=== PATIENT | female | born 1975 | race Hispanic/Latino ===

== ENCOUNTER 2019-07-16 16:24 | Emergency (ER) | payer SELFPAY ==
--- OUTSIDE RECORDS SUMMARY | 2019-07-16 16:26 | XMS REPORT | Continuity of Care Document ---
:1975 Author Organization [facility] Address [address] [place] [address] Allergies, Adverse Reactions, Alerts No known allergies. Medications No known medications. Problems Active Problems Medical Problem Onset Date Status Influenza due to influenza A virus Active Inactive/Resolved Problems Medical Problem Onset Date Status Headache Resolved Hypertension Resolved Procedures No procedure information available. Relevant Diagnostic Tests and/or Laboratory Data Laboratory Results Test Date/Time Result Interpretation Reference Result Comment Performing Range Site Random April 123 74-106 [facility], [address] [place] [address] Glucose 2019 1:11pm [facility] [address] Blood Urea April 10 6-20 [facility], [address] [place] [address] Nitrogen 2019 1:11pm [facility] [address] Serum April 282 280-300 [facility], [address] [place] [address] Osmolality 2019 1:11pm [facility] [address] Creatinine April 0.5 0.50-0.90 [facility], [address] [place] [address] 2019 1:11pm [facility] [address] Glomerular April > 60.00 GFR RESULTS ARE [address] Filtration 2019 REPORTED IN Rate Calc 1:11pm mL/min/1.73m2.No [facility] [address] rmal GFR: >60mL/minModerat mitzi decreased GFR: 30-59 mL/minSeverely decreased GFR: 15-29 mL/minKidney Failure (or Dialysis): <15 mL/minThe calculated eGFR is not valid for patients younger than 18 years or older than 75 years. BUN/Creatini April 20.0 12-20 [facility], [address] Ratio 2019 1:11pm [facility] [address] Sodium Level April 141 135-145 [facility], [address] [place] [address] 2019 1:11pm [facility] [address] Potassium April 3.6 3.5-5.2 [facility], [address] [place] [address] Level 2019 1:11pm [facility] [address] Chloride April 104 98-108 [facility], [address] Level 2019 1:11pm [place] [address] Carbon April 25 21-32 [facility], [address] Dioxide 2019 Level 1:11pm [place] [address] Anion Gap Yarely 15.6 12-[address] 2019 1:11pm [place] [address] Calcium Yarely 9.7 8.6-10.0 [place] [address] Level 2019 1:11pm [facility] [address] Troponin I April < 0.30 0.0-0.[address] 2019 clinical studies 1:11pm have shown [facility] [address] elevations of cTnI in patients with myocardial injury, as seen in unstable angina pectoris, cardiac contusions, and heart transplants. Elevations have also been seen in patients with rhabdomyolysis and polymyositis.Arleen vated troponin levels point to myocardial injury, but are not necessarily indicative of an ischemic mechanism. The term FL should be used when there is evidence of cardiac damage, as detected by marker proteins in a clinical setting consistent with myocardial ischemia. If the clinical circumstance suggests that an ischemic mechanism is unlikely, other causes of cardiac injury should be considered.For diagnostic purposes, the results should always be assessed in conjunction with the patient's medical history, clinical examination and other findings. Creatine April 2.0 0.0-3.6 DIAGNOSTIC [place] [address] Kinase MB 2019 CITERIA: 1:11pm CKMB [facility] [address] CKMB RELATIVE INDEX -SUGGESTIVE OF NON-AMI < or=5 N/AGRAY ZONE (INCONCLUSIVE) > 5 < or=4SUGGESTIVE OF AMI >5 > 4 Health Concerns No known health concerns documented Advance Directives Advance Directive Response Recorded Date/Time Advance Directives No January 29, 2014 3:43pm Directive to Physicians/Living Will No January 29, 2014 3:43pm Health Care Proxy No January 29, 2014 3:43pm Organ Donor No January 29, 2014 3:43pm Medical Power of Shop And Alteration Tailor No January 29, 2014 3:43pm Chief Complaint and Reason for Visit Chief Complaint Headache Reason for Visit [id number] Encounters Encounter Location(s) Arrival/Admit Date Discharge/Depart Date Provider(s) Departed El May 14, 2019 May 14, 2019 BIJAN Emergency Room [facility] 11:42am 2:53pm JOSH Parisi MD Ctr Assessments No Assessments Information Available Functional Status No Functional Status information available Goals No Goals Information Available Immunizations No Immunization Information Available Mental Status No Mental Status Information Available Medical Equipment No Medical Equipment Information available Insurance Providers Guarantor Nia Starkey Address [address] [place] [id number] Contact Info. Home Phone: Payer Policy Id Coverage Id Subscriber's Subscriber Id Effective Expiration Name Date Date Self Pay Adrian Insurance Nia Plan of Treatment diary of sx and BP, see pvt MD in 1 week Future Tests Future scheduled test information is unavailable Pending Tests Pending diagnostic test information is unavailable Future Visits Future appointment information is unavailable Referrals to Other Providers Reason for Referral Start Provider Provider Contact Provider Address Referral Date Information PHYSICIAN, NO Future Procedures Future procedure information is unavailable Future Medications Future medication information is unavailable Patient Instructions General Headache Without Cause Hypertension, Adult Social History Smoking Status Status Date of Observation Never smoked tobacco (finding) May 14, 2019 12:04pm Observation Status Observation Response Date of Response Hx Physical Abuse No May 14, 2019 12:04pm Assigned Sex Female Vital Signs Vital Reading Result Collection Date/Time
[2019-07-16] MEDS ORDERED: BENZONATATE 100 MG CAP PO ONE (17:19)
[2019-07-16] MEDS ORDERED: ACETAMINOPHEN 325 MG TABLET ONE (17:19)
[2019-07-16] MEDS ORDERED: IPRATROPIUM BROM 0.5MG/2.5ML ONE (17:33)
[2019-07-16 17:34] LABS: Urine Blood NEGATIVE (NEG); Urine Glucose NEGATIVE (NEG); Urine Protein NEGATIVE (NEG); Urine Specific Gravity >1.030 (1.005-1.030)
[2019-07-16] MEDS ORDERED: ALBUTEROL 2.5 MG/3 ML NEB SOL ONE (17:34)
--- NOTE | 2019-07-16 18:42 | EDPHYS ---
Physician Documentation [facility] Name: Nia Campbell Age: 43 yrs Sex: Female : 1975 Arrival Date: 07/16/2019 Time: 16:27 Bed 13 Private MD: JON Physician Sanjeev Alvarez HPI: 07/15 16:55 This 43 yrs old Female presents to ER via Ambulatory with complaints of Cough, cp Breathing Difficulty, Headache. 16:55 The patient or guardian reports cough, that is intermittent, with no sputum, difficulty cp breathing. Onset: The symptoms/episode began/occurred 1 week(s) ago. Associated signs and symptoms: Pertinent positives: earache, sore throat, headache, Pertinent negatives: chest pain, diarrhea, vomiting. Historical: - Allergies: 16:32 No Known Allergies; ll1 - PMHx: 16:32 Asthma; Bronchitis; ll1 - PSHx: 16:32 ear surgery; ll1 - Immunization history:: Flu vaccine is not up to date. - Social history:: Smoking status: Patient denies any tobacco usage or history of. Patient/guardian denies using alcohol, street drugs, tobacco products. ROS: 17:05 Constitutional: Negative for body aches, chills, fever, poor PO intake. cp 17:05 Eyes: Negative for injury, pain, redness, and discharge. cp 17:05 ENT: Positive for ear pain, sore throat, Negative for drainage from ear(s), difficulty swallowing, difficulty handling secretions. 17:05 Cardiovascular: Negative for chest pain, edema, palpitations. 17:05 Respiratory: Positive for cough, shortness of breath. 17:05 Abdomen/GI: Negative for abdominal pain, nausea, vomiting, and diarrhea. 17:05 Back: Negative for pain at rest, pain with movement. 17:05 Skin: Negative for rash. 17:05 Neuro: Positive for headache, Negative for altered mental status, dizziness, weakness. 17:05 All other systems are negative. Exam: 17:10 Constitutional: The patient appears in no acute distress, alert, awake, non-toxic, well cp developed, well nourished. 17:10 Head/Face: Normocephalic, atraumatic. cp 17:10 Eyes: Periorbital structures: appear normal, Conjunctiva: normal, no exudate, no injection, Lids and lashes: appear normal, bilaterally. 17:10 ENT: External ear(s): are unremarkable, Ear canal(s): are normal, clear, TM's: bulging, bilaterally, erythema, that is moderate, bilaterally, Nose: is normal, Mouth: Lips: moist, Oral mucosa: pink and intact, moist, Posterior pharynx: is normal, airway is patent, no erythema, no exudate, Tonsils: are normal in appearance, swelling, is not appreciated, erythema, is not appreciated, exudate, is not appreciated. 17:10 Neck: ROM/movement: is normal, is supple, without pain, no range of motions limitations, no nuchal rigidity. 17:10 Chest/axilla: Inspection: normal, Palpation: is normal, no crepitus, no tenderness. 17:10 Cardiovascular: Rate: normal, Rhythm: regular. 17:10 Respiratory: the patient does not display signs of respiratory distress, Respirations: labored breathing, is not present, intercostal retractions, are absent, splinting, is not noted, tachypnea, is not appreciated, Breath sounds: bronchial sounds, that are mild, are heard diffusely, decreased breath sounds, are not appreciated, stridor, is not appreciated, + upper airway congestion. wheezing: is not appreciated. 17:10 Abdomen/GI: Exam negative for discomfort, distension, guarding, Inspection: abdomen appears normal. 17:10 Back: pain, is absent, ROM is normal. 17:10 Skin: no rash present. Vital Signs: 16:30 BP 131 / 76; Pulse 85; Resp 18; Temp 98.5; Pulse Ox 100% ; Weight 72.57 kg; Height 5 ll1 ft. 1 in. (154.94 cm); Pain 8/10; 16:30 Body Mass Index 30.23 (72.57 kg, 154.94 cm) ll1 MDM: 16:39 Patient medically screened. hermes 17:00 Differential Diagnosis: Bronchitis Influenza Sinusitis Otitis Media Asthma Exacerbation cp Viral Syndrome Pneumonia. 18:40 Data reviewed: vital signs, nurses notes, lab test result(s), radiologic studies, plain cp films. 18:40 Test interpretation: by ED physician or midlevel provider: chest xray negative for cp focal pneumonia. 18:40 Counseling: I had a detailed discussion with the patient and/or guardian regarding: the cp historical points, exam findings, and any diagnostic results supporting the discharge/admit diagnosis, lab results, radiology results, to return to the emergency department if symptoms worsen or persist or if there are any questions or concerns that arise at home. 18:40 Response to treatment: the patient's symptoms have mildly improved after treatment, and cp as a result, I will discharge patient. 07/15 16:51 Order name: Influenza Screen (a \T\ B); Complete Time: 17:44 cp 07/15 17:44 Interpretation: Reviewed. 07/15 16:51 Order name: Strep; Complete Time: 17:44 cp 07/15 17:45 Interpretation: Reviewed. 07/15 16:51 Order name: XRAY Chest Pa And Lat (2 Views); Complete Time: 19:05 07/15 19:05 Interpretation: Report reviewed. 07/15 17:24 Order name: Throat Culture EDKS 07/15 17:30 Order name: Urine Dipstick--Ancillary (enter results); Complete Time: 17:44 ms 07/15 17:44 Interpretation: Reviewed. 07/15 17:30 Order name: Urine --Ancillary (enter results); Complete Time: 17:44 ms 07/15 17:44 Interpretation: Normal except: USPGR >1.030. 07/15 16:51 Order name: Urine Dipstick-Ancillary (obtain specimen); Complete Time: 17:38 cp 07/15 16:51 Order name: Urine Test (obtain specimen); Complete Time: 17:38 cp Administered Medications: 17:20 Drug: Tylenol 650 mg Route: PO; hb 18:58 Follow up: Response: No adverse reaction hb 17:38 Not Given (Duplicate Order): Albuterol HFA Inhaler 2 puffs Inhalation once hb 17:39 Drug: Tessalon Perle 200 mg Route: PO; hb 18:58 Follow up: Response: No adverse reaction hb 17:39 Drug: Albuterol - atroVENT (3:1) (2.5 mg - 0.5 mg) 3 ml Route: Nebulizer; hb 18:57 Follow up: Response: No adverse reaction hb Disposition: 07/16 07:35 Co-signature as Attending Physician, Sanjeev Alvarez MD I agree with the assessment and hermes plan of care. Disposition: 07/16/19 18:41 Discharged to Home. Impression: Acute bronchitis, unspecified, Otitis media, unspecified, bilateral. - Condition is Stable. - Discharge Instructions: Acute Bronchitis, Adult, Otitis Media, Adult. - Prescriptions for Augmentin 875- 125 mg Oral Tablet - take 1 tablet by ORAL route every 12 hours for 10 days; 20 tablet. Albuterol Sulfate 90 mcg/actuation - inhale 1-2 puff by INHALATION route every 4-6 hours; 1 Inhaler. Tessalon Perles 100 mg Oral Capsule - take 2 capsule by ORAL route every 8 hours As needed; 30 capsule. - Work release form, Medication Reconciliation Form, Thank You Letter, Antibiotic Education, Prescription Opioid Use form. - Follow up: Private Physician; When: 2 - 3 days; Reason: Worsening of condition. - Problem is new. - Symptoms have improved. Signatures: Dispatcher [employer] EDMS Sanjeev Alvarez MD MD cha Page, Corey, PA PA cp La Jaquez RN RN Graham aBrraza RN RN rr5 Veronica Burton RN RN ll1 Corrections: (The following items were deleted from the chart) 07/15 19:06 18:41 07/16/2019 18:41 Discharged to Home. Impression: Acute bronchitis, unspecified; rr5 Otitis media, unspecified, bilateral. Condition is Stable. Forms are Medication Reconciliation Form, Thank You Letter, Antibiotic Education, Prescription Opioid Use. Follow up: Private Physician; When: 2 - 3 days; Reason: Worsening of condition. Problem is new. Symptoms have improved. cp
--- NOTE | 2019-07-16 18:42 | ER ---
Nurse's Notes [facility] Name: Nia Campbell Age: 43 yrs Sex: Female : 1975 Arrival Date: 07/16/2019 Time: 16:27 Bed 13 Private MD: Diagnosis: Acute bronchitis, unspecified;Otitis media, unspecified, bilateral Presentation: 07/15 16:30 Chief complaint: Patient states: Sore throat, cough for 1 week. SOB since last night. + ll1 chills. Coronavirus screen: Patient denies fever greater than 100.4F, cough, shortness of breath, or difficulty breathing. Proceed with normal triage process. Ebola Screen: Patient denies travel to an Ebola-affected area in the 21 days before illness onset. Initial Sepsis Screen: Does the patient meet any 2 criteria? No. Patient's initial sepsis screen is negative. Risk Assessment: Do you want to hurt yourself or someone else? Patient reports no desire to harm self or others. 16:30 Method Of Arrival: Ambulatory ll1 16:30 Acuity: JORY 3 ll1 Historical: - Allergies: 16:32 No Known Allergies; ll1 - PMHx: 16:32 Asthma; Bronchitis; ll1 - PSHx: 16:32 ear surgery; ll1 - Immunization history:: Flu vaccine is not up to date. - Social history:: Smoking status: Patient denies any tobacco usage or history of. Patient/guardian denies using alcohol, street drugs, tobacco products. Screenin:00 Abuse screen: Denies threats or abuse. Denies injuries from another. Nutritional hb screening: No deficits noted. Tuberculosis screening: No symptoms or risk factors identified. Fall Risk None identified. Assessment: 17:00 General: Appears in no apparent distress. Behavior is calm, cooperative. Pain: Denies hb pain. Neuro: Level of Consciousness is awake, alert, obeys commands, Oriented to person, place, time, situation. Cardiovascular: Capillary refill < 3 seconds Patient's skin is warm and dry. Rhythm is regular. Respiratory: Reports shortness of breath cough that is Airway is patent Respiratory effort is even, unlabored, Respiratory pattern is regular, symmetrical, Breath sounds are clear bilaterally. GI: No signs and/or symptoms were reported involving the gastrointestinal system. : No signs and/or symptoms were reported regarding the genitourinary system. EENT: No signs and/or symptoms were reported regarding the EENT system. Derm: Skin is pink, warm \T\ dry. Musculoskeletal: No signs and/or symptoms reported regarding the musculoskeletal system. 18:00 Reassessment: Patient appears in no apparent distress at this time. Patient and/or hb family updated on plan of care and expected duration. Pain level reassessed. Patient is alert, oriented x 3, equal unlabored respirations, skin warm/dry/pink. 18:57 Reassessment: Patient appears in no apparent distress at this time. Patient and/or hb family updated on plan of care and expected duration. Pain level reassessed. Patient is alert, oriented x 3, equal unlabored respirations, skin warm/dry/pink. Vital Signs: 16:30 BP 131 / 76; Pulse 85; Resp 18; Temp 98.5; Pulse Ox 100% ; Weight 72.57 kg; Height 5 ll1 ft. 1 in. (154.94 cm); Pain 8/10; 16:30 Body Mass Index 30.23 (72.57 kg, 154.94 cm) ll1 ED Course: 16:27 Patient arrived in ED. mr 16:32 Triage completed. ll1 16:33 Arm band placed on Patient placed in an exam room. ll1 16:36 Sanjeev Magana PA is PHCP. cp 16:36 Sanjeev Alvarez MD is Attending Physician. cp 17:00 Patient has correct armband on for positive identification. Bed in low position. Call hb light in reach. 17:00 Strep Sent. jp3 17:00 Influenza Screen (a \T\ B) Sent. jp3 17:00 Flu and/or RSV swab sent to lab. Strep swab sent to lab. jp3 17:13 La Jaquez, RN is Primary Nurse. hb 18:24 XRAY Chest Pa And Lat (2 Views) In Process Unspecified. EDMS 18:59 No provider procedures requiring assistance completed. Patient did not have IV access hb during this emergency room visit. Administered Medications: 17:20 Drug: Tylenol 650 mg Route: PO; hb 18:58 Follow up: Response: No adverse reaction hb 17:38 Not Given (Duplicate Order): Albuterol HFA Inhaler 2 puffs Inhalation once hb 17:39 Drug: Tessalon Perle 200 mg Route: PO; hb 18:58 Follow up: Response: No adverse reaction hb 17:39 Drug: Albuterol - atroVENT (3:1) (2.5 mg - 0.5 mg) 3 ml Route: Nebulizer; hb 18:57 Follow up: Response: No adverse reaction hb Outcome: 18:41 Discharge ordered by MD. cp 18:59 Discharged to home ambulatory. hb 18:59 Condition: stable 18:59 Discharge instructions given to patient, Instructed on discharge instructions, follow up and referral plans. medication usage, Demonstrated understanding of instructions, follow-up care, medications, Prescriptions given X 3. 19:06 Patient left the ED. rr5 Signatures: Dispatcher [employer] EDSC Radha Urrutia Sanjeev Magana PA PA cp La Jaquez RN RN Christiano Harrison jp3 Graham Barraza RN RN rr5 Veronica Burton RN RN ll1 Corrections: (The following items were deleted from the chart) 18:57 18:54 General: Appears in no apparent distress. Behavior is calm, cooperative, hb hb 18:57 18:54 Pain: Denies pain. hb hb 18:57 18:54 Neuro: Level of Consciousness is awake, alert, obeys commands, Oriented to hb person, place, time, situation, hb 18:57 18:54 Cardiovascular: Capillary refill < 3 seconds Patient's skin is warm and dry. hb Rhythm is regular hb 18:57 18:54 Respiratory: Reports shortness of breath cough that is Airway is patent hb Respiratory effort is even, unlabored, Respiratory pattern is regular, symmetrical, Breath sounds are clear bilaterally. hb 18:57 18:54 GI: No signs and/or symptoms were reported involving the gastrointestinal system. hb hb 18:57 18:54 : No signs and/or symptoms were reported regarding the genitourinary system. hb hb 18:57 18:54 EENT: No signs and/or symptoms were reported regarding the EENT system. hb hb 18:57 18:54 Derm: Skin is pink, warm \T\ dry. hb hb 18:57 18:54 Musculoskeletal: No signs and/or symptoms reported regarding the musculoskeletal hb system. hb
--- NOTE | 2019-07-16 18:54 | RAD REPORT ---
EXAM DESCRIPTION: [place] (2 Views)07/16/2019 6:23 pm CLINICAL HISTORY: Cough COMPARISON: None FINDINGS: The lungs appear clear of acute infiltrate. The heart is normal size IMPRESSION: No acute abnormalities displayed
[2019-07-16 19:13] VITALS: BP 131/76; TEMP 98.5; O2SAT 100
== END 2019-07-16 19:06 | disposition home or self-care (01) ==
LOC: ER 16:24
DX: J20.9 Acute bronchitis, unspecified (principal); H66.93 Otitis media, unspecified, bilateral
CPT/HCPCS: 71046; 81003; 81025; 87070; 87081; 87804; 94640; 99284